=== PATIENT | female | born 1950 | race Caucasian/White ===

== ENCOUNTER 2019-02-04 04:37 | Observation (INO) | payer MEDICARE ==
--- NOTE | 2019-02-04 04:53 | ED ---
Shortness of Breath - HPI Summary HPI Summary: A 68 y/o female brought in by ambulance from [facility] presents to [facility] for further evaluation of COPD exacerbation. The patient reports SOB since 17: 00 yesterday and notes that she is due for dialysis today. She also reports right hand pain that she has had for 3-4 days, which was previously diagnosed as gout. At triage she rated her pain as a 10/10 in severity. She claims that she urinates a normal amount. - History of Current Complaint Chief Complaint: EDShortnessOfBreath Time Seen by Provider: 02/04/19 04:42 Hx Obtained From: Patient, EMS Onset/Duration: Sudden Onset, Still Present Timing: Constant Current Severity: Severe Dyspnea At: Rest Aggravating Factors: Nothing Alleviating Factors: Nothing Associated Signs & Symptoms: Negative - fever - Allergy/Home Medications Allergies/Adverse Reactions: Allergies Allergy/AdvReac Type Severity Reaction Status Date / Time codeine Allergy Unknown Verified 02/04/19 04:43 Reaction Details PMH/Surg Hx/FS Hx/Imm Hx Endocrine/Hematology History: Reports: Hx Diabetes Cardiovascular History: Reports: Hx Congestive Heart Failure History: Reports: Hx Dialysis Sensory History: Denies: Hx Deafness EENT History: Denies: Hx Deafness Infectious Disease History: No Infectious Disease History: Denies: Traveled Outside the [place] in Last 30 Days - Family History Known Family History: Negative: Blood Disorder - Social History Alcohol Use: None Hx Substance Use: No Substance Use Type: Reports: None Hx Tobacco Use: Yes Smoking Status (MU): Former Smoker Review of Systems Negative: Fever Positive: Shortness Of Breath Positive: Other - positive: right hand pain All Other Systems Reviewed And Are Negative: Yes Physical Exam - Summary Physical Exam Summary: VITAL SIGNS: Reviewed. GENERAL: Patient is a well-developed and nourished FEMALE who is lying comfortable in the stretcher. Patient is in mild to moderate respiratory distress. HEAD AND FACE: No signs of trauma. No ecchymosis, hematomas or skull depressions. No sinus tenderness. EYES: PERRLA, EOMI x 2, No injected conjunctiva, no nystagmus. EARS: Hearing grossly intact. Ear canals and tympanic membranes are within normal limits. MOUTH: Oropharynx within normal limits. NECK: Supple, trachea is midline, no adenopathy, no JVD, no carotid bruit, no c- spine tenderness, neck with full ROM CHEST: Symmetric, no tenderness at palpation LUNGS: Tachypnic, bilateral rales CVS: Tachycardic, S1 and S2 present, no murmurs or gallops appreciated. ABDOMEN: Soft, non-tender. No signs of distention. No rebound no guarding, and no masses palpated. Bowel sounds are normal. EXTREMITIES: FROM in all major joints, no edema, no cyanosis or clubbing. Dialysis fistula of left wrist. NEURO: Alert and oriented x 3. No acute neurological deficits. Speech is normal and follows commands. SKIN: Dry and warm Triage Information Reviewed: Yes Vital Signs On Initial Exam: Initial Vitals Temp Pulse Resp BP Pulse Ox 97.6 F 101 26 147/96 96 02/04/19 04:38 02/04/19 04:38 02/04/19 04:38 02/04/19 04:38 02/04/19 04:38 Vital Signs Reviewed: Yes Diagnostics - Vital Signs Vital Signs Temp Pulse Resp BP Pulse Ox 02/04/19 04:38 97.6 F 101 26 147/96 96 - Laboratory Lab Statement: Any lab studies that have been ordered have been reviewed, and results considered in the medical decision making process. - Radiology CXR Radiology Interpretation Completed By: ED Physician Summary of Radiographic Findings: bilateral interstitial infiltrate consistent with pulmonary edema. Pending official imaging report. - EKG 04:53 Cardiac Rate: Tachycardia - 101 bpm EKG Rhythm: Sinus Tachycardia Summary of EKG Findings: Sinus tachycardia at 101bpm with RBBB. Course/Dx - Course Course Of Treatment: A 68 y/o female brought in by ambulance from [facility] presents to [facility] for further evaluation of COPD exacerbation. The patient reports SOB since 17:00 yesterday and notes that she is due for dialysis today. The physical exam revealed that the patient is tachypnic, in respiratory distress mild to moderate, has bilateral rales, is tachycardic, and has a dialysis fistula of left wrist. EKG at 04:53 showed Sinus tachycardia at 101bpm with RBBB. In the ED course the patient was given Lasix IV. CXR showed bilateral interstitial infiltrate consistent with pulmonary edema. Bloodwork and chemistries ordered. Case discussed with Dr. Gutierrez, Hospitalist, who accepted the patient for admission. The patient is agreeable with this plan. - Diagnoses Provider Diagnoses: Pulmonary edema, Volume overload - Physician Notifications Discussed Care of Patient With: Astrid Gutierrez Time Discussed With Above Provider: 05:21 Instructed by Provider To: Admit As Inpatient Discharge - Sign-Out/Discharge Documenting (check all that apply): Patient Departure - admit Patient Received Moderate/Deep Sedation with Procedure: No - Discharge Plan Condition: Fair Disposition: ADMITTED TO [facility] Referrals: No Primary Care Phys,NOPCP [Primary Care Provider] - - Attestation Statements Document Initiated by Scribe: Yes Documenting Scribe: Jaren Cox Provider For Whom Scribe is Documenting (Include Credential): Louie Mchugh MD Scribe Attestation: IJaren, scribed for Louie Mchugh MD on 02/04/19 at 0523. Status of Scribe Document: Ready
[2019-02-04] MEDS ORDERED: Furosemide IV* 10 MG/ML VIAL (40 MG) IV SLOW PU ONE (04:55)
[2019-02-04 05:56] LABS: ABS Basophils 0.1 10^3/ul (0-0.2); ABS Lymphocytes 0.2 10^3/ul (1.0-4.8); ABS Monocytes 0.3 10^3/ul (0-0.8); ABS Neutrophils 11.8 10^3/ul (1.5-7.7); Eosinophil % 0.1 %; Hematocrit 29 % (35-47); Lymphocyte % 1.4 %; Mean Corpuscular HGB Conc 31 g/dL (31-36); Mean Corpuscular Hemoglobin 31 pg (27-31); Mean Corpuscular Volume 99 fL (80-97); Mean Platelet Volume 10.7 fL (7.4-10.4); Platelet Count 161 10^3/uL (150-450); Red Blood Count 2.89 10^6 /uL (3.70-4.87); Red Cell Distribution Width 18 % (10-15); White Blood Count 12.4 10^3/uL (3.5-10.8)
[2019-02-04 06:10] LABS: Activated Partial Thrombo Time 37.6 seconds (26.0-38.0); INR 1.03 (0.82-1.09)
[2019-02-04] MEDS ORDERED: Meclizine TAB* 12.5 MG PO PRN (06:21)
[2019-02-04] MEDS ORDERED: Albuterol HFA INHALER* 8 gm MDI INH PRN (06:21)
[2019-02-04 06:24] LABS: ALT 13 U/L (7-52); AST 11 U/L (13-39); Albumin 3.4 g/dL (3.2-5.2); Albumin/Globulin Ratio 1.1 (1-3); Alkaline Phosphatase 118 U/L (34-104); Anion Gap 13 mmol/L (2-11); Blood Urea Nitrogen 49 mg/dL (6-24); CO2 Carbon Dioxide 21 mmol/L (22-32); Calcium 8.6 mg/dL (8.6-10.3); Chloride 105 mmol/L (101-111); EGFR African American 11.8 (>60); EGFR Non-African American 9.8 (>60); Globulin 3.2 g/dL (2-4); Glucose 450 mg/dL (70-100); Potassium 4.5 mmol/L (3.5-5.0); Sodium 139 mmol/L (135-145); Total Protein 6.6 g/dL (6.4-8.9)
[2019-02-04] MEDS ORDERED: CMC:Midodrine 5 MG TAB PO SCH (06:30)
[2019-02-04 06:40] LABS: Troponin I 0.07 ng/mL (<0.04)
[2019-02-04 07:15] LABS: Urine Appearance Cloudy; Urine Bacteria Absent (Absent); Urine Bilirubin Negative (Negative); Urine Blood Negative (Negative); Urine Color Yellow; Urine Glucose 3+(>=500 mg/dL) (Negative); Urine Ketones Negative (Negative); Urine Nitrite Negative (Negative); Urine Protein 2+(100 mg/dL) (Negative); Urine Red Blood Cell Absent (Absent); Urine Specific Gravity 1.011 (1.010-1.030); Urine Squamous Epithelial Cell Present (Absent); Urine Urobilinogen Negative (Negative); Urine White Blood Cell 1+(6-10/hpf) (Absent)
[2019-02-04] MEDS ORDERED: SUCROFERRIC OXYHYDROXIDE 1000 MG PO SCH (09:00)
[2019-02-04] MEDS ORDERED: Gabapentin CAP(*) 100 MG PO SCH (09:00)
[2019-02-04] MEDS ORDERED: Lidocaine 2.5%/Prilocain 2.5%* 5 GM TUBE TOPICAL ONE (09:08)
[2019-02-04] MEDS: FLUoxetine CAP* 10 MG PO SCH (09:45)
[2019-02-04] MEDS: Acetaminophen TAB* 325 MG PO PRN (09:45)
[2019-02-04] MEDS: Gabapentin CAP(*) 100 MG PO SCH ×2 (09:45→20:41)
--- NOTE | 2019-02-04 10:36 | HP ---
CC: [facility]; Dr. Pisano * HISTORY AND PHYSICAL: DATE OF ADMISSION: 02/04/19 PRIMARY CARE PROVIDER: [facility]. CHIEF WRITER: Dr. Pisano. CHIEF COMPLAINT: Shortness of breath. HISTORY OF PRESENT ILLNESS: Ms. Mcgill is a 68-year-old female with history of end- stage renal disease, COPD, depression, and hypertension who initially presented to [facility] with complaints of shortness of breath. Per report from the [facility] ER physician, the patient was in respiratory distress. He felt that she likely had bilateral pneumonia and needed transfer to a facility where she could receive her usual dialysis. I was contacted for direct admission; however, given the respiratory distress noted when she presented, I asked the patient to be sent through our emergency room. In the ER at [facility], the patient was felt to be in pulmonary edema and was given Lasix. At the time of my evaluation with the patient, she states that breathing was much better than when she presented to [facility]. She was still on supplemental oxygen, however. The patient is unable to tell me why she developed end-stage renal disease. She does tell me that her fistula on the left wrist has been difficult and she recently had a procedure done to it. They have been dialyzing her through that fistula, however. She denies any cough, sputum production, fever, chills or sick contacts. The patient did not use any oxygen at baseline. She has had no lower extremity edema. The patient usually received dialysis on Friday, and Friday. I asked if she was above her dry weight now or at her appointment on Friday and she was unable to tell me if this was case. What she did state is that she was told to watch her fluid intake. PAST MEDICAL HISTORY: 1. End-stage renal disease. 2. COPD. 3. Hypertension. 4. Restless legs. 5. Depression. PAST SURGICAL HISTORY: 1. Cholecystectomy. 2. . 3. Fistula. 4. Right hip fracture repair. 5. Peritoneal dialysis catheter insertion and removal. MEDICATIONS: 1. Gabapentin 100 mg p.o. b.i.d. 2. Vitamin D2 5000 unit p.o. q. Friday. 3. Requip 1 mg p.o. q.h.s. 4. Velphoro 1000 mg p.o. t.i.d. 5. Proventil 2 puffs inhaled q.4 hours p.r.n. shortness of breath. 6. Pravastatin 20 mg p.o. p.o. q.h.s. 7. Midodrine 10 mg p.o. Friday, , and Friday. 8. Metoprolol XL 25 mg p.o. q.h.s. 9. Meclizine 12.5 mg p.o. b.i.d. p.r.n., dizziness. 10. Imodium 4 mg p.o. Friday, , and Friday. 11. Tylenol 1000 mg p.o. q.8 hours p.r.n. pain. 12. Paxil 30 mg p.o. daily. 13. Fluoxetine 10 mg p.o. daily. 14. Culturelle 1 cap p.o. daily. ALLERGIES: CODEINE. FAMILY HISTORY: Mom and dad are both . Mom at the age of 68. Dad at the age of 74. She does not know anything about their medical history. SOCIAL HISTORY: The patient is a former smoker of 1.5 to 2 packs per day for 40 years. She quit approximately 12 years ago. She does not drink alcohol. She is a homemaker. She is . She has 4 children. She indicates that Donnie Ye, who is her significant other would be her healthcare proxy. REVIEW OF SYSTEMS: A complete 11 system review of systems was obtained. Pertinent positives and negatives were as per HPI. In addition, the patient does state that she fluctuates between diarrhea and constipation related to her IBS. She urinates 2 to 3 times per day. She has also had right wrist pain and was diagnosed with gout recently. PHYSICAL EXAMINATION GENERAL: The patient is a well developed elderly female seen sitting up in the stretcher in no acute distress. VITAL SIGNS: Blood pressure 135/89, pulse 101, respirations 15, temp 97.6, O2 sat 95% on 3 L. HEENT: Pupils are equal and round. Extraocular muscles are intact. Oropharynx is clear. Oral mucosa is very dry. There is no submandibular, cervical, or supraclavicular adenopathy. PULMONARY: There are diffuse crackles in all lung sutton. CARDIAC: Normal S1 and S2. Heart rate is regular, but tachycardic. I do not appreciate any murmurs. There is no lower extremity edema. ABDOMEN: Bowel sounds are present. Abdomen is soft, nontender, nondistended. MUSCULOSKELETAL: There is no cyanosis or clubbing of the digits. There is full active range of motion all 4 extremities. SKIN: Warm and dry. There are no rashes. She does have bruising noted to her arms. There is a fistula overlying the anterior aspect of the left wrist. There is a thrill present. NEUROLOGIC: Cranial nerves II through XII are grossly intact. Sensation is intact to light touch throughout. Strength is 5/5 and symmetrical to both upper and lower extremities bilaterally. PSYCH: The patient is alert. She is oriented x3. She is generally a poor historian. DIAGNOSTIC STUDIES/LAB DATA: WBC 13.5, hemoglobin 10.0, hematocrit 32.6, platelets 207. Sodium 142, potassium 4.5, chloride 107, CO2 of 25, BUN 48, creatinine 4.6, glucose 238, calcium 8.6, albumin 3.1. AST 15, ALT 20, alk phos 145, bilirubin 0.3, troponin I 0.131. VBG 7.34/47/37. Chest x-ray reveal pulmonary interstitial edema. ASSESSMENT AND PLAN: Ms. Mcgill is a 68-year-old female with history of end- stage renal disease from unclear causes, who receives dialysis on Friday, and Friday, who presented to [facility] with complaints of severe shortness of breath and was found to be in respiratory distress and transferred to [facility] for further treatment of her respiratory issues and to receive dialysis. 1. Respiratory distress. At this point, the patient's respiratory status is improved compared to when she presented to [facility]. She continues to need supplemental oxygen, which is new. I believe her respiratory distress is likely secondary to pulmonary edema and the need for dialysis. At this point, I do not feel that there are signs of pneumonia outside of an elevated white blood cell count and CRP. At this point, I am going to hold off on IV antibiotics. I have contacted Dr. Mullen who will arrange for the patient to be dialyzed today. 2. Leukocytosis. It is unclear whether the patient has a mild leukocytosis of 13,500. Perhaps it is stress mediated. This will be followed, as again, I am holding off on antibiotics. 3. Elevated troponin. We will be getting troponin at [facility]. I do not have the reference range for the troponin obtained at [facility]. This likely could be positive related to demand ischemia from her respiratory distress, pulmonary edema and because she is a dialysis patient. EKG did not reveal any acute ST-T wave abnormalities. The patient may benefit from a transthoracic echocardiogram. 4. End-stage renal disease, as above. The patient will be dialyzed today. Dr. Mullen is already aware of the patient. 5. Chronic obstructive pulmonary disease. There are no signs of exacerbation. At this time, we will continue p.r.n. albuterol. 6. Hyperglycemia. The patient mentioned that at one point she was diagnosed with diabetes, however, she then states that she was not. I am going to add on a hemoglobin A1c. 7. Restless legs. Continue Requip. 8. Depression. At this point, I am going to continue the patient's Prozac, but hold her Paxil. It is unclear why she is on both of these medications. 9. DVT prophylaxis. According to the adult thrombosis prophylaxis risk factor assessment guide, the patient has a total risk factor score of 3 making her high risk. Heparin 5000 units subcutaneous q. 8 hours will be utilize as DVT prophylaxis. 10. Code status is full. TIME SPENT: Sixty-five minutes was spent admitting this patient. [id number]/[facility] #: [id number] [place]
[2019-02-04] MEDS ORDERED: EPOETIN ALFA-EPBX * 3,000 UNIT/ML VIAL IV ONE (13:00)
[2019-02-04] MEDS ORDERED: EPOETIN ALFA-EPBX * 2,000 UNIT/ML VIAL IV ONE (13:00)
[2019-02-04] MEDS ORDERED: Heparin DIALYSIS ONLY(*) 1,000 UNITS/ML VIAL DIALYSIS ONE (13:00)
[2019-02-04] MEDS ORDERED: Nitro 2% OINT* (Nitroglycerin) 1 INCH/PAK PAK ONE (13:13)
--- NOTE | 2019-02-04 13:26 | PN ---
Progress Note - Progress Note Date of Service: 02/04/19 Note: pt was a CAT call due to increased WOB. C/o SOB, denies CP, AAOx3, currently just started on hemodialysis in dialysis room on Exam lungs diminished with rales b/l +JVD b/l CV:RRR, no murmur Extr: no pedal edema b/l A/P: pt with pulm edema, needs dialysis Pt will need BIPAP and due to the unique situation that she was just started on her HD session, will cont it and place on BIPAP in the HD room. If she still requires BIPAP after HD she will be transferred to ICU. will place on VS every 1 hr and cont pulseox.
[2019-02-04 14:01] LABS: ABS Lymphocytes 0.3 10^3/ul (1.0-4.8); ABS Monocytes 0.5 10^3/ul (0-0.8); Hematocrit 32 % (35-47); Hemoglobin 10.4 g/dL (12.0-16.0); Lymphocyte % 1.9 %; Mean Corpuscular HGB Conc 32 g/dL (31-36); Mean Corpuscular Hemoglobin 31 pg (27-31); Mean Corpuscular Volume 96 fL (80-97); Mean Platelet Volume 10.5 fL (7.4-10.4); Platelet Count 242 10^3/uL (150-450); Red Blood Count 3.37 10^6 /uL (3.70-4.87); Red Cell Distribution Width 17 % (10-15); White Blood Count 15.8 10^3/uL (3.5-10.8)
[2019-02-04 14:17] LABS: Anion Gap 13 mmol/L (2-11); BUN/Creatinine Ratio 10.2 (8-20); Blood Urea Nitrogen 23 mg/dL (6-24); CO2 Carbon Dioxide 28 mmol/L (22-32); Calcium 9.9 mg/dL (8.6-10.3); Chloride 95 mmol/L (101-111); EGFR Non-African American 21.5 (>60); Glucose 183 mg/dL (70-100); Potassium 3.6 mmol/L (3.5-5.0); Sodium 136 mmol/L (135-145)
[2019-02-04 14:30] LABS: Troponin I 0.06 ng/mL (<0.04)
[2019-02-04 15:58] LABS: Hepatitis B Surface Antigen Negative (Negative)
[2019-02-04 16:15] LABS: Hepatitis B Surface Ab Not Immune (Immune)
[2019-02-04] MEDS ORDERED: Iodixanol* (CONTRAST) 320 MG/ML 100 ML SDV IV ONE (17:36)
--- NOTE | 2019-02-04 19:29 | PN ---
Progress Note - Progress Note Date of Service: 02/04/19 Note: Patient was seen in dialysis post CAT call. On Bipap initiated by Dr. Thomas. Dialysis ongoing with the goal to remove 3.[address] transferred to ICU V/S Pulse 106; RR 21; Sat 100%; BP 97/69 Gen - awake in ICU on ventimask post dialysis Lung - CTA bilateral, poor air flow and rales at bases CVS- S1; S2 RRR Imp: Acute respiratory failure secondary to pulmonary edema can not rule out PE Plan: Transfer to ICU, bystand Bipap. CTA rule out PE. Remaining of plan refer to H&P done earlier today
[2019-02-04] MEDS: Heparin VIAL(*) 5000 UNITS/ML VIAL (FIVE THOUSAND) SUBCUT SCH ×2 (20:40→21:09)
[2019-02-04] MEDS: SUCROFERRIC OXYHYDROXIDE 1000 MG PO SCH ×2 (20:41→20:44)
[2019-02-04] MEDS ORDERED: rOPINIRole TAB* 1 MG PO SCH (21:00)
[2019-02-04] MEDS ORDERED: Metoprolol Succinate XL TAB* 25 MG PO SCH (21:00)
[2019-02-04] MEDS ORDERED: CMC:Pravastatin (NF) 20 MG TAB PO SCH (21:00)
[2019-02-05] MEDS: Acetaminophen TAB* 325 MG PO PRN (04:24)
[2019-02-05] MEDS: Heparin VIAL(*) 5000 UNITS/ML VIAL (FIVE THOUSAND) SUBCUT SCH (05:56)
[2019-02-05] MEDS: FLUoxetine CAP* 10 MG PO SCH (08:55)
[2019-02-05] MEDS: SUCROFERRIC OXYHYDROXIDE 1000 MG PO SCH (08:55)
[2019-02-05] MEDS: Gabapentin CAP(*) 100 MG PO SCH (08:55)
[2019-02-05] MEDS ORDERED: Furosemide IV* 10 MG/ML 10 ML VIAL (100 MG) IV ONE (09:28)
[2019-02-05 09:30] LABS: ABS Basophils 0.1 10^3/ul (0-0.2); ABS Monocytes 0.7 10^3/ul (0-0.8); ABS Neutrophils 7.4 10^3/ul (1.5-7.7); Eosinophil % 0.5 %; Hematocrit 30 % (35-47); Hemoglobin 9.9 g/dL (12.0-16.0); Lymphocyte % 10.9 %; Mean Corpuscular HGB Conc 33 g/dL (31-36); Mean Corpuscular Hemoglobin 31 pg (27-31); Mean Corpuscular Volume 96 fL (80-97); Mean Platelet Volume 10.6 fL (7.4-10.4); Nucleated Red Blood Cells % 0.1; Platelet Count 178 10^3/uL (150-450); Red Blood Count 3.16 10^6 /uL (3.70-4.87); Red Cell Distribution Width 17 % (10-15); White Blood Count 9.2 10^3/uL (3.5-10.8)
[2019-02-05 09:54] LABS: BUN/Creatinine Ratio 9.2 (8-20); Calcium 9.1 mg/dL (8.6-10.3); EGFR African American 14.6 (>60); EGFR Non-African American 12.1 (>60); Magnesium 2.1 mg/dL (1.9-2.7); Phosphorus 5.4 mg/dL (2.5-5.0); Potassium 3.8 mmol/L (3.5-5.0)
[2019-02-05 15:37] VITALS: BP 117/74
--- NOTE | 2019-02-05 21:07 | DS ---
DISCHARGE SUMMARY: DATE OF ADMISSION: 02/04/19 DATE OF DISCHARGE: 02/05/19 FINAL DISCHARGE DIAGNOSES: 1. Acute pulmonary edema secondary to volume overload. 2. Acute respiratory failure with hypoxia secondary to pulmonary edema. 3. End-stage renal disease. 4. Hypertension. 5. Chronic obstructive pulmonary disease. HOSPITAL COURSE: The patient presented to [facility] on 02/04/19 as a transfer [facility] secondary to acute respiratory failure, requiring emergent dialysis. She was accepted to our service, was admitted to the medical floor. She was getting dialysis. In the midst of rebecca snider, she developed acute respiratory distress. CAT call was called. The patient was attended to dur ing the dialysis session. She was placed on BiPAP and her dialysis session was maintained and contin ued. Hence, given her acute decompensation, I elected to transfer the patient from the dialysis unit to the ICU in the event she develops further decompensation that requires further dialysis. The pat ient remained stable throughout the day after dialysis overnight and she was reassessed the following morning today on 02/05/19 by myself. She is on 2 L nasal cannula and on room air, she had an incide nce of desaturation with exertion below 88%, at one time she was I believe down to 83%. I did review the CT angiogram, which was done yesterday after her dialysis, which was negative for PE. I did con sult with the rn critical care to arrange for outpatient oxygen with exertion and this has been secured a nd arranged and hence with the above assessment, I deemed the patient stable to be discharged with O2 with exertion and to follow up tomorrow morning on 02/06/19 for her routine outpatient setting rebecca snider with her own digital marketing assistant at 6 o'clock in the morning. DISCHARGE ASSESSMENT AND PLAN: Respiratory distress, which was secondary to acute pulmonary edema se condary to volume overload. She is status post dialysis yesterday with 3.5 L removed. Today, she wa s given Lasix 80 mg IV with good urine output and we will plan to discharge her home with O2 short-te rm until she has her dialysis done as an outpatient tomorrow with her dialysis. For her elevated troponin which probably due demand-mediated and I believe it was due to her renal fa ilure, repeat troponin was down to 0.06. For her lactic acidosis probably from her hypoxia and volume overload, repeat lactic acid post dialys is was down to 0.8, which was 2.5 on presentation. For her elevated BNP, which is probably due to renal and dialysis and volume, edema. For her leukocytosis, I believe it was stress-induced, repeat white count this morning was down to 9. 2. For her end-stage renal disease, she is to follow up with her digital marketing assistant tomorrow, 02/06/19. For her chronic obstructive pulmonary disease, there was no sign of exacerbation, p.r.n. albuterol. For her depression, resume back her home medication of SSRI. Given her hyperglycemia, A1c was obtained. Her blood sugar was 450; however, her A1c 5.9. This need s to be further followed as an outpatient. DISCHARGE MEDICATIONS: Resume home meds as follows: 1. Requip 1 mg daily. 2. Proventil 2 puffs every 4 hours. 3. Pravastatin 20 daily. 4. Paxil 30 mg every day. 5. Midodrine 10 mg every Friday, , and Friday. 6. Imodium as needed. 7. Gabapentin 100 b.i.d. 8. Fluoxetine 10 mg every day, listed in her home medication. 9. Tylenol as needed. 10. Velphoro 1000 mg 3 times a day. 11. Meclizine 12.5 b.i.d. 12. Toprol-XL 25 daily. 13. Vitamin D 50,000 units every Friday. DISCHARGE RECOMMENDATIONS: 1. Follow up with primary care in 1 to 2 weeks. 2. Follow up with your digital marketing assistant for outpatient dialysis tomorrow as scheduled at 6 a.m. DISCHARGE DISPOSITION: Home. DISCHARGE CONDITION: Stable. [id number]/[facility] #: [id number]
== END 2019-02-05 14:50 | disposition home or self-care (01) ==
LOC: ED 04:37 → MEDTELE 06:19 → ICU 16:05
PROVIDERS: ADMIT Hospitalist; ATTEND Internal Medicine
DX: J81.0 Acute pulmonary edema (principal); E87.70 Fluid overload, unspecified; J96.01 Acute respiratory failure with hypoxia; N18.6 End stage renal disease; I10 Essential (primary) hypertension; J44.9 Chronic obstructive pulmonary disease, unspecified; Z99.2 Dependence on renal dialysis; Z79.899 Other long term (current) drug therapy; G25.81 Restless legs syndrome; F32.9 Major depressive disorder, single episode, unspecified; I50.9 Heart failure, unspecified; Z87.891 Personal history of nicotine dependence
CPT/HCPCS: 36415; 36600; 71045; 71275; 80048; 80053; 80176; 81003; 81015; 82803; 83036; 83605; 83735; 83880; 84100; 84484; 85025; 85610; 85730; 86140; 86706; 87040; 87086; 87340; 87641; 90935; 93005; 94660; 96365; 96366; 96375; 99285; A9270-GY; G0257; G0378; J1644; J1940; Q5106; Q9967